=== PATIENT | male | born 1945 | race Caucasian/White ===

== ENCOUNTER 2018-08-01 05:40 | Observation (INO) | payer OTHER ==
[2018-07-23 13:18] LABS: URINE BILIRUBIN NEGATIVE (Negative); URINE BLOOD NEGATIVE (Negative); URINE CLARITY CLEAR; URINE COLOR YELLOW; URINE GLUCOSE-RANDOM* NEGATIVE (Negative); URINE KETONES NEGATIVE (Negative); URINE LEUKOCYTES-REFLEX NEGATIVE (Negative); URINE NITRITE-REFLEX NEGATIVE (Negative); URINE PROTEIN (DIPSTICK) NEGATIVE (Negative); URINE SPECIFIC GRAVITY 1.015 (1.005-1.035); URINE UROBILINOGEN 0.2 E.U./dl (0.2-1.0)
[2018-07-23 13:20] LABS: HEMATOCRIT 42.7 % (42.0-52.0); HEMOGLOBIN 14.7 gm/dL (14.0-18.0); MCH 31.1 pg (26.0-34.0); MCHC 34.4 g/dL (28.0-37.0); MCV 90.4 fL (80.0-100.0); RBC 4.72 mil/uL (4.50-6.00); RDW 13.1 % (10.5-14.5); WBC 5.8 thou/uL (4.0-11.0)
[2018-07-23 13:25] LABS: ALBUMIN 4.5 g/dL (3.4-5.0); CALCIUM 9.7 mg/dL (8.5-10.1); CREATININE 0.8 mg/dL (0.7-1.3); POTASSIUM 3.9 mmol/L (3.5-5.1)
[2018-07-24 05:09] LABS: GLYCOHEMOGLOBIN (HGB A1C) 6.2 % (4.8-5.6)
[~2018-08-01] VITALS: Ht 177.8 cm; Wt 102.1 kg
[2018-08-01] VITALS (8 sets, daily range): BP systolic 117–167; BP diastolic 67–84
--- NOTE | ~2018-08-01 | O ---
[facility] [place] [address] OPERATIVE REPORT Name: SOFÍA RODRIGEZ Zully Room #: 417-I [facility] John Liriano#: [id number] Admission: 08/01/18 Attend Phys: Neville Moe MD Discharge: 08/02/18 Date of : 45 Report #: [id number] THIS REPORT FOR: //name// CC: Physician staff LUZ MARIA Moe DATE OF SERVICE: 08/01/2018 PREOPERATIVE DIAGNOSIS: Right knee medial compartment osteoarthritis. POSTOPERATIVE DIAGNOSIS: Right knee medial compartment osteoarthritis. PROCEDURE: Right medial compartment knee arthroplasty with Navio computerized assistance. SURGEON: Neville Moe MD. GROUNDWATER MONITORING TECHNICIAN: Marisa Mckinley PA-C. INDICATIONS FOR GROUNDWATER MONITORING TECHNICIAN: Throughout the case, extensive retraction and manipulation of the knee was required. This was afforded to me by my project assistant. ANESTHESIA: LMA with an adductor canal block. IMPLANTS: [employer] size 5 Stride femur, size 7 tibia and a size 8 polyethylene. TOURNIQUET TIME: 68 minutes. ESTIMATED BLOOD LOSS: 25 mL. COMPLICATIONS: None. SPECIMEN: None. CONDITION UPON LEAVING THE OPERATING ROOM: Stable. INDICATION FOR PROCEDURE: The patient is a 73-year-old gentleman with right knee medial compartment osteoarthritis who failed conservative treatment for this and after discussion with him, he elected for right unicompartmental knee arthroplasty. DESCRIPTION OF PROCEDURE: Risks, benefits, alternatives, complications were discussed in detail with the patient including but not limited to risk of anesthesia, risk of damage to nerves, arteries, blood vessels, risk for [facility] [address] [place] [address] OPERATIVE REPORT Name: RODRIGEZSOFÍA Zully Room #: 417-I [facility] John Liriano#: [id number] Admission: 08/01/18 Attend Phys: Neville Moe MD Discharge: 08/02/18 Date of : 45 Report #: [id number] infection, bleeding, risk for continued knee pain, need for reoperation. Informed consent was obtained from the patient. Right knee was appropriately marked in the preoperative holding area. Adductor canal block placed by Anesthesia. He was brought to the operating room and placed in the supine position on the operating room table. LMA anesthesia was induced without complication. Tourniquet was placed on the right thigh. Right lower extremity was prepped and draped in normal sterile fashion. Timeout was performed properly identifying the patient and procedure as well as the instrumentation and implants. All in the operating room were in agreement. Right lower extremity was exsanguinated, tourniquet was inflated. Tourniquet time was 68 minutes. Standard medial approach to the knee was made with 10 blade through the skin. Dissection was taken down sharply to the fascia and deep flaps were developed medially and laterally. Fresh 10 blade was used to make a medial parapatellar arthrotomy, and the knee was inspected. There was severe medial compartment osteoarthritis. Lateral compartment was well maintained. 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 It was decided to proceed with unicompartmental arthroplasty. Osteophytes were removed from the femur as well as the tibia. The reference pins were then placed in the tibia and femur with a Navio navigation system. The knee was then digitally mapped using the Navio navigation system and intraoperative plan was made. We sized the 5 on the femur and 5/7 on the tibia. This was planned for a size 9 polyethylene. After acceptance of the intraoperative plan, the bone resection was made using the Navio navigation for the femur and the tibia. Trial components were then placed, and the knee was trialed with a size 8 polyethylene. Knee was taken through range of motion, found to be stable, found to have good balance in flexion and extension both manually as well as digitally using the Navio system. After this, trial components were removed. Bony ends were thoroughly irrigated with normal saline. A final size 5 Stride femur and a size 7 tibia were cemented in place using standard cementation techniques. While the cement cured, a periarticular injection consisting of morphine, ropivacaine, epinephrine and Toradol was placed around the knee joint capsule. After the cement cured, the tourniquet was deflated. Hemostasis was obtained with Bovie cautery. Final size 8 polyethylene was placed. A gram of vancomycin was placed deep in the joint. The fascia was closed with 0 Vicryl, skin was closed with 2-0 Vicryl, 3-0 Monocryl. Dermabond and a KAITY dressing was applied. The patient tolerated this procedure well and went to recovery room under care of Anesthesia postoperatively. <ELECTRONICALLY SIGNED> By: Neville Moe MD 08/10/18 1306 [id number] 1537 Neville Moe MD /ander
--- NOTE | ~2018-08-01 | EKG ---
[place] [address] [facility] [place] [address] ELECTROCARDIOGRAM REPORT Name: SOFÍA RODRIGEZ Room #: [facility]#: [id number] Admission: Attend Phys: Neville Moe MD Discharge: Date of : 45 Report #: [id number] THIS REPORT FOR: //name// [facility] Test Date: 2018-07-23 Test Time: 13:18:37 Pat Name: SOFÍA RODRIGEZ Department: Room: Gender: [employer] Sales Representative: ralph : 1945 Requested By: Neville Moe Order Number: [id number] : Kavin Khalil Measurements Intervals [place] Rate: 65 P: 11 OR: 185 QRS: -52 QRSD: 158 T: 7 QT: 465 QTc: 484 Interpretive Statements Sinus rhythm RBBB and LAFB Left ventricular hypertrophy No previous ECG available for comparison Electronically Signed On 07-23-2018 17:48:15 CDT by Kavin Khalil [email or web address] <ELECTRONICALLY SIGNED> By: Kavin Khalil MD 07/23/18 1748 1318 1318 Kavin Khalil MD /JENNIFER
[~2018-08-01 05:40] MED LIST: ALEVE220 MG PO; ASPIR 8181 MG PO; FOLIC ACID0.4 MG PO; GAVILAX8.5 GM PO; GLUCOPHAGE XR500 MG PO; LIPITOR 20 MG T20 M1 PO; LISINOPRIL-HCT1 EAC1 PO; MEN'S MULTIVI200 MCG PO; NORVASC10 MG PO; OMEGA-3 FLAXS1000 MG PO; VITAMIN B12 PO; VITAMIN D3400 UNIT PO
[2018-08-02 05:44] VITALS: BP 135/84
[2018-08-02 06:22] LABS: HEMATOCRIT 36.7 % (42.0-52.0); HEMOGLOBIN 12.5 gm/dL (14.0-18.0); MCHC 34.1 g/dL (28.0-37.0); MCV 90.8 fL (80.0-100.0); RBC 4.04 mil/uL (4.50-6.00); WBC 9.2 thou/uL (4.0-11.0)
[2018-08-02 07:36] VITALS: BP 148/82
[2018-08-02] MEDS ORDERED: TRI-BUFFERED A325 M1 PO (10:16)
[2018-08-02] MEDS ORDERED: NEURONTIN 300300 M1 PO (10:16)
[2018-08-02 11:40] VITALS: BP 148/82
[2018-08-02] MEDS ORDERED: NORCO 5-325 TA1 EACH PO (11:44)
== END 2018-08-02 12:46 | disposition home or self-care (01) ==
LOC: OR 05:40 → 4E 05:40 → TBA 05:41 → OR 08:15 → EDSTATUS 08:18 → PRE 08:19 → OR 14:49 → 4E 16:22 → OR 16:23 → EDSTATUS 17:02 → OR 17:09 → ENTRNSPT 08-02 12:37 → 4E 08-02 12:46
PROVIDERS: Orthopaedic Surgery
DX: M17.11 Unilateral primary osteoarthritis, right knee (principal); M17.12 Unilateral primary osteoarthritis, left knee; M22.41 Chondromalacia patellae, right knee; M25.761 Osteophyte, right knee